=== PATIENT | male | born 1970 | race Caucasian/White ===

== ENCOUNTER 2021-11-23 12:10 | Outpatient (REF) | payer SELFPAY ==
[2021-11-25 16:27] LABS: COVID-19 RT-PCR UVMMC Result Negative (Negative)
== END 2021-11-23 12:11 | disposition home or self-care (01) ==
LOC: NCHCN 12:10
PROVIDERS: PCP Physician Assistant; Visit Provider Physician Assistant
DX: Z20.822 Contact with and (suspected) exposure to COVID-19 (principal); R09.89 Other specified symptoms and signs involving the circulatory and respiratory systems
CPT/HCPCS: U0003